=== PATIENT | female | born 1975 | race Two or more races ===

== ENCOUNTER 2018-09-27 05:53 | Observation (INO) | payer OTHER ==
[~2018-09-27] VITALS: Ht 154.9 cm; Wt 68.9 kg
[2018-09-27] MEDS ORDERED: IV NORMAL SALINE 1,000ML 1,000 ML IV SCH ×2 (06:09→09:00)
[2018-09-27] MEDS ORDERED: ASPIRIN 81 MG TAB.CHEW PO ONE (06:15)
--- NOTE | 2018-09-27 06:17 | PHYS DOC ---
Past History Past Medical History: Arthritis Past Surgical History: No Surgical History Alcohol Use: Rarely Drug Use: None Adult General Chief Complaint Chief Complaint: CHEST PAIN HPI HPI Patient is a 43-year-old female who presents with complaint of intermittent chest discomfort for the last couple of weeks. She states that at time she gets tightness across her chest and also indicates that she has had some discomfort on the left side of her neck posteriorly. She states that intermittently she has had nausea but no vomiting. She has also had no diaphoresis. 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 She states that this morning she was woken up from sleep with palpitations at about 3 AM. She states that it felt like her heart was beating really hard and states that when she looked at her chest, she could actually see her chest rising with each beat. She describes the pain in her chest is just a tightness/discomfort and she rates that at a 3-4 out of 10. She is not aware of any exacerbating or alleviating factors. She denies any cough or shortness of breath. Currently she denies any palpitations. She does indicate that in the past she had similar symptoms and had a cardiac workup at that time but was told that there was nothing wrong with her.[] Review of Systems Review of Systems Constitutional: Denies fever or chills [] Respiratory: Denies cough or shortness of breath [] Cardiovascular: No additional information not addressed in HPI [] GI: Denies abdominal pain, nausea, vomiting or diarrhea [] Integument: Denies rash or skin lesions [] Neurologic: Denies headache, focal weakness or sensory changes [] All other systems were reviewed and found to be within normal limits, except as documented in this note. Allergies Allergies Allergies Coded Allergies Type Severity Reaction Last Updated Verified No Known Drug Allergies 09/27/18 No Physical Exam Physical Exam Constitutional: Well developed, well nourished, no acute distress, non-toxic appearance. [] HENT: Normocephalic, atraumatic, bilateral external ears normal, oropharynx moist, no oral exudates, nose normal. [] Eyes: PERRLA, EOMI, conjunctiva normal, no discharge. [] Neck: Normal range of motion, no tenderness, supple, no stridor. [] Cardiovascular: Regular rate and rhythm[] Lungs & Thorax: Bilateral breath sounds clear to auscultation [] Abdomen: Bowel sounds normal, soft, no tenderness. [] Skin: Warm, dry, no erythema, no rash. [] Extremities: No tenderness, no cyanosis, no clubbing, ROM intact, no edema. [] Neurologic: Alert and oriented X 3, no focal deficits noted. [] Current Patient Data Vital Signs Vital Signs Date Time Temp Pulse Resp B/P (MAP) Pulse Ox O2 Delivery O2 Flow Rate FiO2 09/27/18 05:53 67 16 97 Room Air EKG EKG EKG demonstrates normal sinus rhythm with rate of 66.[] Radiology/Procedures Radiology/Procedures [] Impressions: Chest x-ray demonstrates no acute process. Course & Med Decision Making Course & Med Decision Making Pertinent Labs and Imaging studies reviewed. (See chart for details) [] Dragon Disclaimer Dragon Disclaimer This electronic medical record was generated, in whole or in part, using a voice recognition dictation system. Departure Departure: Impression: Primary Impression: Chest pain Disposition: ADMITTED INPATIENT Admitting Physician: Ac Hinds Condition: GOOD Referrals: PCP,NO (PCP) Problem Qualifiers Primary Impression: Chest pain Chest pain type: unspecified Qualified Codes: R07.9 - Chest pain, unspecified TEO MOJICA Jr. DO September 27, 2018 06:17
[2018-09-27 06:25] LABS: BASO % 0 % (0-3); EOS # 0.1 x10^3/uL (0.0-0.7); EOS % 1 % (0-3); HEMATOCRIT 41.8 % (36.0-47.0); HEMOGLOBIN 14.3 g/dL (12.0-15.5); LYMPH % 31 % (24-48); MEAN CORPUSCULAR HEMOGLOBIN 30 pg (25-35); MEAN CORPUSCULAR HGB CONC 34 g/dL (31-37); MEAN CORPUSCULAR VOLUME 89 fL (79-100); MONO # 0.4 x10^3/uL (0.0-1.1); MONO % 6 % (0-9); NEUT % 61 % (31-73); PLATELET COUNT 365 x10^3/uL (140-400); RED BLOOD COUNT 4.71 x10^6/uL (3.50-5.40); RED CELL DISTRIBUTION WIDTH 12.5 % (11.5-14.5); WHITE BLOOD COUNT 6.5 x10^3/uL (4.0-11.0)
[2018-09-27 06:38] LABS: ALBUMIN 3.8 g/dL (3.4-5.0); CALCIUM 8.5 mg/dL (8.5-10.1); CREATININE 0.7 mg/dL (0.6-1.0); GFR 90.9; MAGNESIUM 1.9 mg/dL (1.8-2.4); POTASSIUM 3.8 mmol/L (3.5-5.1); TOTAL BILIRUBIN 0.4 mg/dL (0.2-1.0); TOTAL PROTEIN 7.6 g/dL (6.4-8.2)
[2018-09-27] MEDS ORDERED: MORPHINE SULFATE 2 MG/ML DISP.SYRIN. IV PRN (07:15)
[2018-09-27] MEDS ORDERED: NITROGLYCERIN SUBLINGUAL 0.4 MG BOTTLE OF 25. SL PRN (07:15)
[2018-09-27] MEDS ORDERED: NITROGLYCERIN SUBLINGUAL 0.4 MG BOTTLE OF 25. SL ONE (07:15)
[2018-09-27] MEDS ORDERED: ONDANSETRON PF 4 MG/2 ML VIAL. IV PRN (07:15)
--- NOTE | 2018-09-27 07:40 | RAD ---
Portable chest, 09/27/2018: HISTORY: Chest pain The heart size is normal. The lungs are clear. There is no evidence of pleural fluid. IMPRESSION: No acute cardiopulmonary abnormality is detected. Electronically signed by: Rodríguez Rojo MD (09/27/2018 7:37 AM) [facility]
[2018-09-27 07:53] LABS: BACTERIA,URINE 0 /HPF (0-FEW); BILIRUBIN,URINE NEG (NEG); CLARITY,URINE CLEAR; COLOR,URINE STRAW; GLUCOSE,URINE NEG (NEG); NITRITE,URINE NEG (NEG); RBC,URINE 0 /HPF (0-2); SQUAMOUS EPITHELIAL CELL,UR OCC /LPF; UROBILINOGEN,URINE 0.2 mg/dL (0.2 mg/dL); WBC,URINE 0 /HPF (0-4)
[2018-09-27 08:32] VITALS: BP 119/75
--- NOTE | 2018-09-27 08:55 | PDOC2 ---
CARDIAC CONSULT DATE OF CONSULT Date Of Consult DATE: 09/27/18 TIME: 08:51 REASON FOR CONSULT Reason for Consult Chest pain REFERRING PHYSICIAN Referring Physician Dr. Frias SOURCE Source: Chart review, Patient HPI History of Present Illness This is a 43 yo female who presented secondary to chest pain, palpitations. Patient woke up this morning around 3 am with "squeezing" sensation in her left chest. [place] as if her heart was beating fast and hurt across he central chest. Last a couple of minutes and resolved without intervention. No associated dizziness, diaphoresis, SOA, or nausea/vomiting. This has happened a couple of times over the last week. No specific precipitating or exacerbating factors. Resolved without intervention. Has had some intermittent nausea over the last week or so and a sharp pain up the left side of her neck two days ago, but this is unrelated to the chest pain. Is active and very physically active. No previous h/o heart disease. No EKG available for viewing. PAST MEDICAL HISTORY Cardiovascular: No pertinent hx Pulmonary: No pertinent hx GI: No pertinent hx Heme/Onc: No pertinent hx Hepatobiliary: No pertinent hx Psych: No pertinent hx Musculoskeletal: No pertinent hx Rheumatologic: No pertinent hx Infectious disease: No pertinent hx ENT: No pertinent hx Renal/: No pertinent hx Endocrine: No pertinent hx Dermatology: No pertinent hx PAST SURGICAL HISTORY Past Surgical History: No pertinent history FAMILY HISTORY Family History: Diabetes SOCIAL HISTORY Smoke: No ALCOHOL: none Drugs: None Lives: with Family CURRENT MEDICATIONS Current Medications Current Medications Aspirin (Children'S Aspirin) 324 mg 1X ONCE PO Last administered on 09/27/18at 06:20; Start 09/27/18 at 06:15; Stop 09/27/18 at 06:40; Status DC Sodium Chloride 1,000 ml @ 1,000 mls/hr Q1H IV Last administered on 09/27/18at 06:21; Start 09/27/18 at 06:09; Stop 09/27/18 at 07:08; Status DC Nitroglycerin (Nitrostat) 0.4 mg 1X ONCE SL ; Start 09/27/18 at 07:15; Stop 09/27/18 at 07:17; Status DC Ondansetron HCl (Zofran) 4 mg PRN Q4HRS PRN IV NAUSEA/VOMITING; Start 09/27/18 at 07:15; Stop 09/28/18 at 07:14 Morphine Sulfate (Morphine 2mg Syringe) 2 mg PRN Q2HR PRN IV PAIN; Start 09/27/18 at 07:15; Stop 09/28/18 at 07:14 Nitroglycerin (Nitrostat) 0.4 mg PRN Q5MIN PRN SL CHEST PAIN; Start 09/27/18 at 07:15; Stop 09/28/18 at 07:14 ALLERGIES Allergies: Coded Allergies: No Known Drug Allergies (Unverified , 09/27/18) ROS Review of Systems 14 point ROS conducted with pertinent positives noted above in HPI PHYSICAL EXAM General: Alert, Oriented X3, Cooperative, No acute distress HEENT: Atraumatic, Mucous membr. moist/pink Lungs: Clear to auscultation, Normal air movement Heart: Regular rate, Normal S1, Normal S2 Abdomen: Soft, No tenderness Extremities: No edema, Normal pulses Skin: No breakdown Neuro: Normal speech, Sensation intact Psych/Mental Status: Mental status NL, Mood NL MUSCULOSKELETAL: No deformity VITALS Vital Signs Vital Signs Date Time Temp Pulse Resp B/P (MAP) Pulse Ox O2 Delivery O2 Flow Rate FiO2 09/27/18 08:32 98.5 61 20 119/75 (90) 97 Room Air LABS LABS Laboratory Tests Test 09/27/18 06:01 09/27/18 07:12 White Blood Count 6.5 x10^3/uL (4.0-11.0) Red Blood Count 4.71 x10^6/uL (3.50-5.40) Hemoglobin 14.3 g/dL (12.0-15.5) Hematocrit 41.8 % (36.0-47.0) Mean Corpuscular Volume 89 fL (79-100) Mean Corpuscular Hemoglobin 30 pg (25-35) Mean Corpuscular Hemoglobin Concent 34 g/dL (31-37) Red Cell Distribution Width 12.5 % (11.5-14.5) Platelet Count 365 x10^3/uL (140-400) Neutrophils (%) (Auto) 61 % (31-73) Lymphocytes (%) (Auto) 31 % (24-48) Monocytes (%) (Auto) 6 % (0-9) Eosinophils (%) (Auto) 1 % (0-3) Basophils (%) (Auto) 0 % (0-3) Neutrophils # (Auto) 4.0 x10^3uL (1.8-7.7) Lymphocytes # (Auto) 2.0 x10^3/uL (1.0-4.8) Monocytes # (Auto) 0.4 x10^3/uL (0.0-1.1) Eosinophils # (Auto) 0.1 x10^3/uL (0.0-0.7) Basophils # (Auto) 0.0 x10^3/uL (0.0-0.2) D-Dimer (Amanda) 0.40 mg/L (0.00-0.50) Sodium Level 139 mmol/L (136-145) Potassium Level 3.8 mmol/L (3.5-5.1) Chloride Level 104 mmol/L (98-107) Carbon Dioxide Level 26 mmol/L (21-32) Anion Gap 9 (6-14) Blood Urea Nitrogen 12 mg/dL (7-20) Creatinine 0.7 mg/dL (0.6-1.0) Estimated GFR (Cockcroft-Gault) 90.9 BUN/Creatinine Ratio 17 (6-20) Glucose Level 94 mg/dL (70-99) Calcium Level 8.5 mg/dL (8.5-10.1) Magnesium Level 1.9 mg/dL (1.8-2.4) Total Bilirubin 0.4 mg/dL (0.2-1.0) Aspartate Amino Transf (AST/SGOT) 13 U/L (15-37) Alanine Aminotransferase (ALT/SGPT) 26 U/L (14-59) Alkaline Phosphatase 61 U/L (46-116) Troponin I Quantitative < 0.017 ng/mL (0-0.055) IF-Rib-F-Type Natriuretic Peptide 31 pg/mL (0-124) Total Protein 7.6 g/dL (6.4-8.2) Albumin 3.8 g/dL (3.4-5.0) Albumin/Globulin Ratio 1.0 (1.0-1.7) Lipase 160 U/L (73-393) Urine Collection Type Unknown Urine Color Straw Urine Clarity Clear Urine pH 5.5 Urine Specific Mclain <=1.005 Urine Protein Neg (NEG-TRACE) Urine Glucose (UA) Neg mg/dL (NEG) Urine Ketones (Stick) Neg mg/dL (NEG) Urine Blood Neg (NEG) Urine Nitrite Neg (NEG) Urine Bilirubin Neg (NEG) Urine Urobilinogen Dipstick 0.2 mg/dL (0.2 mg/dL) Urine Leukocyte Esterase Neg (NEG) Urine RBC 0 /HPF (0-2) Urine WBC 0 /HPF (0-4) Urine Squamous Epithelial Cells Occ /LPF Urine Bacteria 0 /HPF (0-FEW) ASSESSMENT/PLAN Assessment/Plan 1. Chest pain, atypical. 2. Palpitations; tele SR without acute events thus far Recommendations Trend troponin Lipid panel, TSH Echo to assess LV systolic function Monitor tele for presence of significant arrhythmias possibly contributing to symptoms. EKG if not able to obtain NOVA CARY APRN September 27, 2018 08:55
[2018-09-27] MEDS ORDERED: MORPHINE SULFATE 4 MG/ML DISP.SYRIN. IV PRN (09:00)
[2018-09-27 10:24] VITALS: BP 116/78
--- NOTE | 2018-09-27 14:06 | CARD ---
MR#: [id number] Date of Study: 09/27/2018 Ordering Physician: NOVA CARY, Referring Physician: FERNANDO GREEN Tech: Rowena Boone KVNG APPROVED REPORT EXAM: Two-dimensional and M-mode echocardiogram with Doppler and color Doppler. Other Information Quality : AverageHR: 72bpm Rhythm : NSR INDICATION Chest Pain 2D DIMENSIONS RVDd2.0 (2.9-3.5cm)Left Atrium(2D)3.0 (1.6-4.0cm) IVSd0.8 (0.7-1.1cm)Aortic Root(2D)2.6 (2.0-3.7cm) LVDd4.8 (3.9-5.9cm)LVOT Diameter1.8 (1.8-2.4cm) PWd0.7 (0.7-1.1cm)LVDs3.0 (2.5-4.0cm) FS (%) 36.6 %SV71.2 ml LVEF(%)66.3 (>50%) M-Mode DIMENSIONS Left Atrium(MM)2.71 (2.5-4.0cm)Aortic Root2.88 (2.2-3.7cm) Aortic Valve AoV Peak Nam.180.8cm/sAoV VTI35.4cm AO Peak GR.13.1mmHgLVOT Peak Nam.117.6cm/s LVOT VTI 24.04cmAO Mean GR.7mmHg AMADO (VMAX)1.51xy1EEE (VTI)1.81cm2 Mitral Valve MV E Lbjgpjxv675.5cm/sMV DECEL VFAZ039oj MV A Ehtblrcl13.2cm/sE/A Ratio1.6 MV A Efirruxb586os Pulmonary Valve PV Peak Sgizbhcm44.5cm/sPV Peak Grad.3mmHg Tricuspid Valve TR P. Tlntfrry352de/sRAP OAOVHTEQ0zeVg TR Peak Gr.57psBkWTST55bvPm LEFT VENTRICLE The left ventricle is normal size. There is normal left ventricular wall thickness. The left ventricu lar systolic function is normal. The Ejection Fraction is 60-65%. There is normal LV segmental wall m otion. The left ventricular diastolic function and filling is normal for age. RIGHT VENTRICLE The right ventricle is normal size. There is normal right ventricular wall thickness. The right ventr icular systolic function is normal. ATRIA The left atrium size is normal. The right atrium size is normal. The interatrial septum is intact wit h no evidence for an atrial septal defect or patent foramen ovale as noted on 2-D or Doppler imaging. AORTIC VALVE The aortic valve is normal in structure and function. The aortic valve is trileaflet. Doppler and Col or Flow revealed no significant aortic regurgitation. There is no significant aortic valvular stenosi s. MITRAL VALVE The mitral valve is normal in structure and function. There is no evidence of mitral valve prolapse. There is no mitral valve stenosis. Doppler and Color-flow revealed trace mitral regurgitation. TRICUSPID VALVE The tricuspid valve is normal in structure and function. Doppler and Color Flow revealed trace tricus pid regurgitation. The PA pressure was estimated at 34 mmHg. There is no tricuspid valve prolapse or vegetation. There is no tricuspid valve stenosis. PULMONIC VALVE The pulmonary valve is normal in structure and function. Doppler and Color Flow revealed trace pulmon ic valvular regurgitation. There is no pulmonic valvular stenosis. GREAT VESSELS The aortic root is normal in size. The ascending aorta is normal in size. The IVC is normal in size a nd collapses >50% with inspiration. PERICARDIAL EFFUSION There is no evidence of significant pericardial effusion. Critical Notification Critical Value: No <Conclusion> The left ventricular systolic function is normal. The Ejection Fraction is 60-65%. There is normal LV segmental wall motion. Trace mitral regurgitation. Trace tricuspid regurgitation. The PA pressure was estimated at 34 mmHg. There is no evidence of significant pericardial effusion. Signed by : Cory Baker, Electronically Approved : 09/27/2018 14:06:19
[2018-09-27] MEDS ORDERED: ATOR10TA PO (14:33)
--- NOTE | 2018-09-27 14:44 | EKG ---
[address] [address] Test Date: 2018-09-27 Test Time: 06:12:23 Pat Name: GISELE BURKETT Department: Room: 115 A Gender: F Medical Assistant Internal Medicine: : 1975 Requested By: TEO MOJICA Order Number: [id number] Reading MD: Cory Baker Measurements Intervals [place] Rate: 66 P: 45 AL: 150 QRS: -20 QRSD: 74 T: 5 QT: 380 QTc: 400 Interpretive Statements SINUS RHYTHM LEFTWARD AXIS Electronically Signed On 10-19-2018 12:11:16 CDT by Cory Baker
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
--- NOTE | 2018-09-29 07:31 | EKG ---
[address] [address] Test Date: 2018-09-27 Test Time: 06:12:23 Pat Name: GISELE BURKETT Department: Room: 115 A Gender: F Process Automation Engineer: : 1975 Requested By: FERNANDO GREEN Order Number: [id number] Reading MD: Cory Baker Measurements Intervals [place] Rate: 66 P: 45 ND: 150 QRS: -20 QRSD: 74 T: 5 QT: 380 QTc: 400 Interpretive Statements SINUS RHYTHM LEFTWARD AXIS Electronically Signed On 10-19-2018 12:11:20 CDT by Cory Baker
== END 2018-09-27 15:18 | disposition home or self-care (01) ==
LOC: ER 05:53 → 1 SOUTH 07:20 → INTOOBSV 07:20
PROVIDERS: ADMIT Internal Medicine; ATTEND Internal Medicine
DX: R07.89 Other chest pain (principal); M19.90 Unspecified osteoarthritis, unspecified site; Z83.3 Family history of diabetes mellitus; Z82.49 Family history of ischemic heart disease and other diseases of the circulatory system
CPT/HCPCS: 36415; 71045; 80053; 80061; 81001; 83690; 83735; 83880; 84443; 84484; 85025; 85379; 93005; 93306; 99284; G0378; 96360; G0379; 99285-25; J7030

== ENCOUNTER 2019-04-29 06:57 | Emergency (ER) | payer OTHER ==
[~2019-04-29] VITALS: Ht 154.9 cm; Wt 68.0 kg
[~2019-04-29 06:57] MED LIST: ATOR10TA PO
[2019-04-29] MEDS ORDERED: ONDANSETRON PF 4 MG/2 ML VIAL. IVP ONE (07:45)
[2019-04-29] MEDS ORDERED: MORPHINE SULFATE 10 MG/ML SYRINGE. IM ONE (08:00)
[2019-04-29] MEDS ORDERED: ONDANSETRON ODT 4 MG TAB.RAPDIS PO ONE (08:00)
[2019-04-29 08:11] VITALS: BP 127/77
[2019-04-29] MEDS ORDERED: ACETAMINOPHEN 500 MG TABLET PO ONE (08:30)
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
[2019-04-29] MEDS ORDERED: CYCL-331 PO (08:55)
[2019-04-29] MEDS ORDERED: HYDR-3165 PO (08:55)
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
== END 2019-04-29 09:00 | disposition home or self-care (01) ==
LOC: ER 06:57
DX: S06.0X0A Concussion without loss of consciousness, initial encounter (principal); S13.4XXA Sprain of ligaments of cervical spine, initial encounter; S00.83XA Contusion of other part of head, initial encounter; S20.219A Contusion of unspecified front wall of thorax, initial encounter; M19.90 Unspecified osteoarthritis, unspecified site; V89.2XXA Person injured in unspecified motor-vehicle accident, traffic, initial encounter; Y93.I9 Activity, other involving external motion; Y92.89 Other specified places as the place of occurrence of the external cause; Y99.8 Other external cause status
CPT/HCPCS: 70450; 70486; 72125; 81025; 99284-25